=== PATIENT | female | born 1995 | race Caucasian/White ===

== ENCOUNTER 2017-12-31 09:47 | Emergency (ER) | payer SELFPAY ==
--- NOTE | 2017-12-31 10:19 | ED Physician Documentation ---
General Adult - HISTORIAN Historian: patient - HPI Stated Complaint: Possible infection Chief Complaint: General Adult Further Comments: yes (22 year old female patient presents with complaint of rash on right shoulder, spots on arms and legs. Patient reports history of MRSA. 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; discussed further with provider - patient reports 2 week history of daily use, states she has an addiction and has only attended twice in the past.) - ROS CONST: no problems EYES/ENT: none, other CVS/RESP: none GI/: none MS/SKIN/LYMPH: none NEURO/PSYCH: denies: headache - PAST HX Past History: other (Hx MRSA) Allergies/Adverse Reactions: Allergies Allergy/AdvReac Type Severity Reaction Status Date / Time No Known Allergies Allergy Verified 12/31/17 10:07 Home Medications: Ambulatory Orders Medication Instructions Recorded Hydroxyzine HCl 25 mg PO D 12/31/17 Mupirocin [Bactroban] 1 appl TP BID #1 tube 12/31/17 Sertraline HCl [Zoloft] 25 mg PO D 12/31/17 Sulfamethoxazole/Trimethoprim 1 each PO BID #14 tab 12/31/17 [Bactrim Ds] - SOCIAL HX Smoking History: cigarettes Drug Use: methamphetamines - FAMILY HX Family History: No - VITAL SIGNS Vital Signs: Vital Signs Temp Pulse Resp BP Pulse Ox 99.1 F 105 H 16 111/64 99 12/31/17 09:52 12/31/17 09:52 12/31/17 09:52 12/31/17 09:52 12/31/17 09:52 - REVIEWED ASSESSMENTS Nursing Assessment Reviewed: Yes Vitals Reviewed: Yes Progress - Progress Progress: Extensive discussion with patient on meth abuse and addiction. List of NA meetings provided, 12 step information provided. General Adult Physical Exam - PHYSICAL EXAM GENERAL APPEARANCE: anxious EENT: eye inspection normal, ENT inspection normal, pharynx normal, no signs of dehydration, SHLOMO, no nystagmus, TM's nml RESPIRATORY: no resp distress, chest non-tender, breath sounds normal CVS: reg rate & rhythm, heart sounds normal, equal pulses, no murmur, no gallop, PMI nml, no JVD, no friction rub, 24 ABDOMEN: soft, no organomegaly, normal bowel sounds, no abdominal bruit, no distension SKIN: warm/dry, normal color, other (right shoulder with multiple scab areas; folliculitis noted on arms and legs. ) EXTREMITIES: non-tender, normal range of motion, no evidence of injury, no edema, J, CONTROL [employer]EL [employer] NEURO: oriented X3, CN's nml as tested, motor nml, sensation nml, mood/affect nml Discharge Clincal Impression: Folliculitis, History of MRSA infection Cellulitis Qualifiers: Site of cellulitis: other site Qualified Code(s): L03.818 - Cellulitis of other sites Prescriptions: Mupirocin [Bactroban] 1 appl TP BID #1 tube Sulfamethoxazole/Trimethoprim [Bactrim Ds] 1 each PO BID #14 tab Referrals: Primary Doctor,No [Primary Care Provider] - 2 Days Additional Instructions: Stop using Meth. Attend an NA meeting as soon as possible; see attached list. 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 Wound care: Wash wounds twice a day with Hibiclens soap and rinse with water Apply thin coat of antibiotic ointment Cover any areas with drainage. Condition: Stable Disposition: 01 HOME, SELF-CARE Decision to Admit: NO Decision Time: 10:19
[2017-12-31 10:38] VITALS: BP 108/62
== END 2017-12-31 10:30 | disposition home or self-care (01) ==
LOC: ED 09:47
DX: L73.9 Follicular disorder, unspecified (principal); L03.818 Cellulitis of other sites; F15.20 Other stimulant dependence, uncomplicated
CPT/HCPCS: 99283